=== PATIENT | female | born 1995 | race Caucasian/White ===

== ENCOUNTER → 2023-05-05 14:43 | Outpatient (REF) | payer BC, SELFPAY | LOC: RAD 14:43 | PROVIDERS: ATTENDING PHYSICIAN Nurse Practitioner Adult Health | DX: E04.2 Nontoxic multinodular goiter (principal) | CPT/HCPCS: 76536 ==

== ENCOUNTER → 2023-08-04 08:21 | Outpatient (REF) | payer BC, SELFPAY | LOC: RST 08:21 | PROVIDERS: ATTENDING PHYSICIAN Nurse Practitioner Adult Health | DX: R13.10 Dysphagia, unspecified (principal) | CPT/HCPCS: 74230; 92611 ==

== ENCOUNTER 2024-02-13 06:02 | Day surgery (SDC) | payer BC, SELFPAY ==
[2024-02-02 10:50] LABS: Hematocrit 40.9 % (37.0-47.0); Hemoglobin 13.9 g/dL (12.0-16.0); Mean Corpuscular Volume 85.2 fL (81.0-99.0); Mean Platelet Volume 9.4 fL (7.4-10.4); Platelet Count 311 10^3/uL (130-400); Red Cell Dist. Width 13.2 % (11.5-14.5); White Blood Cell Count 5.4 10^3/uL (4.8-10.8)
[2024-02-02 10:59] LABS: INR 1.06; PT 14.1 Sec (11.4-14.6)
[2024-02-02 11:00] LABS: APTT 29.2 Sec (23.4-35.0)
[2024-02-02 11:27] LABS: ALT (SGPT) 27 U/L (0-35); AST (SGOT) 25 U/L (14-36); Albumin 4.8 g/dl (3.5-5.0); Alkaline Phosphatase 81 U/L (38-126); Blood Urea Nitrogen 15 mg/dl (7-17); Calcium 9.8 mg/dl (8.4-10.2); Carbon Dioxide 26 mmol/L (22-30); Chloride 104 mmol/L (98-107); Glucose 86 mg/dl (70-99); Potassium 4.4 mmol/L (3.5-5.1); Sodium 140 mmol/L (135-145); Total Bilirubin 0.4 mg/dl (0.2-1.3); Total Protein 7.6 g/dl (6.3-8.2); eGFR > 60.00
[2024-02-02 13:58] VITALS: BMI 28.0
[2024-02-13] VITALS (9 sets, daily range): BP systolic 122–140; BP diastolic 69–86; BMI 28.0
[2024-02-13] MEDS: TYLENOL 1000 MG PO (07:18)
[2024-02-13] MEDS: NORMOSOL-R/PLASMALYTE-A 1000 IV (07:18)
[2024-02-13] MEDS: NEURONTIN 300 MG PO (07:18)
[2024-02-13] MEDS: HEPARIN 5000 UNITS SC (07:18)
[2024-02-13] MEDS: TRANSDERM-SCOP 1 PATCH TRANSDERM (07:55)
--- NOTE | 2024-02-13 09:23 | OR.RPT ---
Operative Report
Operative Report
DATE OF OPERATION: February 13, 2024
PREOPERATIVE DIAGNOSIS: Right Thyroid Nodule - E041
POSTOPERATIVE DIAGNOSIS: Same
SURGEON: Art Jeronimo M.D.
OPERATION: Right Thyroid Lobectomy - 11406
ANESTHESIA: GET
ESTIMATED BLOOD LOSS: 10 cc
DRAINS: None
SPECIMEN: right total thyroid lobe and isthmus
FINDINGS: Multinodular goiter
COMPLICATIONS:� None
PROCEDURE:
The patient was taken to the operating room and placed in the usual supine position. After adequate general endotracheal anesthesia was established, the patient�s neck was extended, prepped, and draped in the typical sterile fashion. A 5 cm
transcervical incision was made two fingerbreadths above the sternal notch. The skin incision was made with the #15 blade, which was taken through the skin into the subcutaneous tissue. The underlying platysma muscle was divided, and subplatysmal
flaps were created superiorly to the thyroid cartilage and inferiorly to the sternal notch. Strap muscles were identified and at the midline.
Attention was turned to the patient�s right thyroid lobe. The right thyroid lobe was mobilized medially. During this process, the right middle thyroid vein and inferior thyroid artery were dissected and ligated with Ligasure. Next, the right
superior pole was taken down by dissecting and transecting the superior pole vessels with a Ligasure. The right thyroid lobe was mobilized medially. During this process, the right recurrent laryngeal nerve was identified and preserved throughout its
entire course. The right inferior parathyroid gland was identified and preserved. The right thyroid lobe with isthmus was resected off the trachea and sent to the pathology department.
After obtaining adequate hemostasis, the strap muscle was approximated with #3-0 Vicryl in a running fashion, and platysma muscles were reapproximated with #3-0 Vicryl in an interrupted fashion, and the skin was approximated with #4-0 Monocryl in a
running subcuticular fashion. Steri-strips and sterile dressings were placed. The patient tolerated the procedure well. The final instrument, needle, and sponge counts were correct.
[2024-02-13] MEDS: DILAUDID 0.25 MG IV (09:53)
== END 2024-02-13 11:30 | disposition home or self-care (01) ==
LOC: SDS 06:02
PROVIDERS: ATTENDING PHYSICIAN Surgery; FAMILY PHYSICIAN Nurse Practitioner Adult Health
DX: E04.1 Nontoxic single thyroid nodule (principal)
CPT/HCPCS: 60220; 88305; 88307; 36415; 80053; 85027; 85610; 85730; 93005; C1776